=== PATIENT | female | born 1945 | race Caucasian/White ===

== ENCOUNTER → 2017-02-01 | Outpatient (CLI) | payer MEDICARE, BC ==
[~2017-02-01] MED LIST: ACETAMINOPHEN PO; ACYCLOVIR400 MG PO; ALBUTEROL17 GM INH; CIPRO PO; HYDROCODONE-APA1 T61 PO; LORTAB 2.5/5001 TAB PO; LORTAB 5/500 TA1 TA1 PO; MACROBID 100 M100 MG PO; MULTI VITAMIN1 EACH PO; NASONEX17 GM; OMEPRAZOLE20 M2 PO; OMNICEF300 MG PO; PRAVACHOL PO; PRAVASTATIN SOD20 MG PO; PREMARIN PO; PROBIOTIC1 EAC1 PO; TIME SLEEP AID; TYLOX 5/500 CAP1 CAP PO; VICODIN 5/500 T1 TAB PO; VITAMIN D35000 UNIT PO
--- NOTE | ~2017-02-01 | MY11 ---
[facility] A Service of [facility] / [facility] RADIOLOGY TEXT RESULTS PATIENT: MARK ALICIA LOCATION: [facility] : 43 UNIT #: [id number] AGE: [address]: Vanessa Box MD SEX: F ORDER DR: [id number] [facility] [address] [place], [place] [address] [id number] O MR#: [id number] Acc #: [id number] NAME: MARK ALICIA : 1945 SEX: F STUDY DATE/TIME: 02/01/2017 10:53 UNIT: [facility] ROOM: STUDY DESCRIPTION: MY Mammogram Screening [place] Attending Physician: Vanessa Box M.D. Referring Physician: Vanessa Box M.D. Ordering Physician: Vanessa Box M.D. Primary Care Physician: Vanessa Box M.D. MEDICAL IMAGING REPORT This report is preliminary unless electronic signature is present EXAM Digital screening mammogram 02/01/2017 HISTORY 71-year-old woman positive family history, premenopausal sister. Prior right breast biopsy. Annual screen. COMPARISON Mammograms date to 04/25/2006 with most recent 02/08/2016. FINDINGS Digital imaging of each breast was completed utilizing screening protocol. Biopsy marker was placed on the right breast. Review includes FDA-approved CAD device. Breast parenchyma remains heterogeneous with a small nodular parenchymal pattern primarily upper outer quadrants of each breast. There is no interval occurring breast mass and no suspicious microcalcifications. I see no architectural disturbance. IMPRESSION Stable benign mammogram. Annual screening recommended. Patients over the age of 40 are entered into a reminder system with target due date for the next mammogram. A result letter will also be sent to the patient. BIRADS: 2, benign findings. Dictated by... Leif Quach M.D. THIS IS AN ELECTRONICALLY VERIFIED REPORT Leif Quach M.D. at 02/01/2017 12:53 PM [facility] A Service of [facility] / [facility] RADIOLOGY TEXT RESULTS PATIENT: MARK ALICIA LOCATION: [facility] : 43 UNIT #: [id number] AGE: [address]: Vanessa Box MD SEX: F ORDER DR: JC/rnr TD: 02/01/2017 12:18 JOB #: [id number] MEDICAL IMAGING REPORT Page 1 of 1 COPY
== END | disposition home or self-care (01) ==
LOC: CWCC 10:32
DX: Z12.31 Encounter for screening mammogram for malignant neoplasm of breast (principal); Z80.3 Family history of malignant neoplasm of breast; Z98.890 Other specified postprocedural states
CPT/HCPCS: G0202

== ENCOUNTER → 2017-04-05 | Outpatient (CLI) | payer MEDICARE, BC | END | disposition home or self-care (01) | LOC: CECH 13:39 | DX: R55 Syncope and collapse (principal) | CPT/HCPCS: 93306 ==